=== PATIENT | female | born 1935 | race Caucasian/White ===

== ENCOUNTER → 2017-06-08 | Outpatient (CLI) | payer OTHER ==
[~2017-06-08] VITALS: Ht 162.6 cm; Wt 58.5 kg
[~2017-06-08] MED LIST: ASPIR 8181 M1 PO; CALCIUM 500 MG1 EACH PO; CENTRUM MULTIG80 MCG PO; CRESTOR10 MG PO; LASIX20 MG PO; LUTEIN6 M1 PO; MIRALAX17 GM PO; VITAMIN D-32000 UNI2 PO
[2017-06-08 10:33] LABS: INTER. NORMALIZED RATIO 1.2; PROTHROMBIN TIME 12.9 SEC (10.2-12.9)
[2017-06-08 10:36] LABS: PTT 29.1 SEC (25-37)
== END | disposition home or self-care (01) ==
LOC: OPR 09:31 → EDSTATUS 10:00
PROVIDERS: Family Medicine
PROC: 0BBG3ZX Excision of Left Upper Lung Lobe, Percutaneous Approach, Diagnostic (ICD-10-PCS; principal; 2017-06-08)
DX: C34.12 Malignant neoplasm of upper lobe, left bronchus or lung (principal); J60 Coalworker's pneumoconiosis
CPT/HCPCS: 71010; 77012; 85610; 85730; 88305; 88341 TC; 88342 TC; J3010

== ENCOUNTER 2017-08-21 22:19 | Observation (INO) | payer OTHER ==
[~2017-08-21] VITALS: Ht 165.1 cm; Wt 49.5 kg
[2017-08-21 23:54] LABS: HEMATOCRIT 28.1 % (36.0-46.0); HEMOGLOBIN 9.6 G/DL (11.9-15.5); MCH 28.6 PG (29.0-34.0); MCHC 34.2 G/DL (30.0-36.0); MCV 83.6 FL (83-99); PLATELET COUNT 202 K/uL (156-360); RBC DIS.WIDTH-CV 13.9 % (11.8-14.6); RBC DIS.WIDTH-SD 40.1 % (39-53); RED BLOOD COUNT 3.36 M/uL (3.80-5.20); WHITE BLOOD COUNT 5.6 K/uL (4.1-10.2)
[2017-08-22 00:05] LABS: CHLORIDE 100 mEq/L (99-109); POTASSIUM 4.1 mEq/L (3.7-5.4); SODIUM 135 mEq/L (136-147)
[2017-08-22 00:07] LABS: GLUCOSE 120 mg/dL (70-99)
[2017-08-22 00:08] LABS: TOTAL PROTEIN 5.9 g/dL (6.4-8.3)
[2017-08-22 00:09] LABS: TOTAL BILIRUBIN 0.7 mg/dL (0.0-1.0)
[2017-08-22 00:11] LABS: ALKALINE PHOSPHATASE 74 IU/L (3-129); CREATININE 0.6 mg/dL (0.6-1.3); GFR ESTIMATE (CALCULATED) > 59 mL/min/
[2017-08-22 00:12] LABS: UREA NITROGEN (BUN) 10 mg/dL (9-23)
[2017-08-22 00:13] LABS: AST (GOT) 14 IU/L (2-34)
[2017-08-22 00:14] LABS: ALT (GPT) 18 IU/L (3-49)
[2017-08-22 00:15] LABS: LIPASE 97 U/L (1.0-51.0)
[2017-08-22 00:17] LABS: TROP-I INTERPRETATION NEGATIVE; TROPONIN-I < 0.01 ng/mL (0.0-0.30)
[2017-08-22 02:12] LABS: MAGNESIUM 1.4 mg/dL (1.3-2.7)
[2017-08-22 02:17] LABS: PHOSPHORUS 3.7 mg/dL (2.5-4.9)
[2017-08-22 06:35] LABS: TROP-I INTERPRETATION NEGATIVE; TROPONIN-I < 0.01 ng/mL (0.0-0.30)
[2017-08-22 07:29] VITALS: BP 144/73
[2017-08-22 09:47] LABS: THYROTROPIN (TSH) 0.79 MIU/L (0.4-5.5)
[2017-08-22] MEDS ORDERED: TIMOPTIC-0100 DROP/1 LEFT EYE (11:44)
[2017-08-22] MEDS ORDERED: ISTALOL5 ML LEFT EYE (11:45)
[2017-08-22] MEDS ORDERED: PRILOSEC20 MG PO (11:46)
[2017-08-22] MEDS ORDERED: XYLOCAINE VISC100 ML PO (11:46)
[2017-08-22] MEDS ORDERED: ZOFRAN8 MG PO (11:47)
[2017-08-22] MEDS ORDERED: COMPAZINE10 MG PO (11:47)
[2017-08-22 12:09] VITALS: BP 118/56
[2017-08-22 16:12] VITALS: BP 142/64
[2017-08-22 20:00] VITALS: BP 171/76
[2017-08-22 23:32] VITALS: BP 164/74
[2017-08-23 05:10] VITALS: BP 134/63
[2017-08-23 05:54] LABS: HEMATOCRIT 24.8 % (36.0-46.0); HEMOGLOBIN 8.4 G/DL (11.9-15.5); MCH 28.5 PG (29.0-34.0); MCHC 33.9 G/DL (30.0-36.0); MCV 84.1 FL (83-99); PLATELET COUNT 205 K/uL (156-360); RBC DIS.WIDTH-SD 40.5 % (39-53); RED BLOOD COUNT 2.95 M/uL (3.80-5.20); WHITE BLOOD COUNT 4.5 K/uL (4.1-10.2)
[2017-08-23 06:16] LABS: CHLORIDE 103 MEQ/L (99-109); CREATININE 0.4 MG/DL (0.6-1.3); GFR ESTIMATE (CALCULATED) > 59 mL/min/; GLUCOSE 90 mg/dL (70-99); POTASSIUM 3.8 MEQ/L (3.7-5.4); SODIUM 135 MEQ/L (136-147); UREA NITROGEN (BUN) 6 mg/dL (9-23)
[2017-08-23 08:57] VITALS: BP 170/88
== END 2017-08-23 11:10 | disposition home or self-care (01) ==
LOC: EME 22:19 → EDOF 08-22 06:08 → ENRESERV 08-22 06:10 → 5WEST 08-22 07:19
PROVIDERS: Emergency Medicine; Hospitalist
DX: E86.1 Hypovolemia (principal); D64.9 Anemia, unspecified; C34.32 Malignant neoplasm of lower lobe, left bronchus or lung; E78.5 Hyperlipidemia, unspecified; Z92.21 Personal history of antineoplastic chemotherapy; Z92.3 Personal history of irradiation; Z79.82 Long term (current) use of aspirin; Z79.52 Long term (current) use of systemic steroids; R00.2 Palpitations; I47.1 Supraventricular tachycardia; I48.91 Unspecified atrial fibrillation; J90 Pleural effusion, not elsewhere classified; Z90.49 Acquired absence of other specified parts of digestive tract; Z66 Do not resuscitate; Z80.0 Family history of malignant neoplasm of digestive organs; Z80.3 Family history of malignant neoplasm of breast
CPT/HCPCS: 71020; 71275; 80048; 80053; 83690; 83735; 84100; 84443; 84484; 85027; 93005; 99281; 99285; G0378; J1644; J2405; J7030; J7512; S0028

== ENCOUNTER 2017-11-06 10:54 | Inpatient (IN) | payer OTHER ==
[~2017-11-06] VITALS: Ht 165.1 cm; Wt 50.4 kg
[~2017-11-06 10:54] MED LIST changes: +COMPAZINE10 MG PO; +ISTALOL5 ML LEFT EYE; +PRILOSEC20 MG PO; +TIMOPTIC-0100 DROP/1 LEFT EYE; +XYLOCAINE VISC100 ML PO; +ZOFRAN8 MG PO
[2017-11-06 13:29] LABS: BASOPHIL (%) 0.2 % (0-1); EOSINOPHIL (%) 0.2 % (0-5); HEMATOCRIT 26.4 % (36.0-46.0); HEMOGLOBIN 8.4 G/DL (11.9-15.5); IMMATURE GRANULOCYTE (%) 0.8 % (0.0-0.7); LYMPHOCYTE (%) 3.7 % (15-42); LYMPHOCYTE COUNT 0.4 K/uL (1.0-2.8); MCH 27.7 PG (29.0-34.0); MCHC 31.8 G/DL (30.0-36.0); MCV 87.1 FL (83-99); MONOCYTE (%) 5.6 % (3-12); MONOCYTE COUNT 0.7 K/uL (0-0.8); NEUTROPHIL (%) 89.5 % (45-76); NEUTROPHIL COUNT 10.8 K/uL (1.8-6.4); PLATELET COUNT 468 K/uL (156-360); RBC DIS.WIDTH-CV 16.8 % (11.8-14.6); RBC DIS.WIDTH-SD 53.1 % (39-53); RED BLOOD COUNT 3.03 M/uL (3.80-5.20)
[2017-11-06 13:34] LABS: INTER. NORMALIZED RATIO 1.3
[2017-11-06 13:37] LABS: PTT 25.8 SEC (25-37)
[2017-11-06 13:38] LABS: ALBUMIN 2.7 g/dL (3.2-4.8); CHLORIDE 100 mEq/L (99-109); MAGNESIUM 1.6 mg/dL (1.3-2.7); POTASSIUM 4.1 mEq/L (3.7-5.4); SODIUM 136 mEq/L (136-147)
[2017-11-06 13:40] LABS: GLUCOSE 103 mg/dL (70-99); TOTAL PROTEIN 6.7 g/dL (6.4-8.3)
[2017-11-06 13:42] LABS: TOTAL BILIRUBIN 0.3 mg/dL (0.0-1.0)
[2017-11-06 13:44] LABS: ALKALINE PHOSPHATASE 289 IU/L (3-129); CREATININE 0.6 mg/dL (0.6-1.3); GFR ESTIMATE (CALCULATED) > 59 mL/min/
[2017-11-06 13:45] LABS: AST (GOT) 32 IU/L (2-34); UREA NITROGEN (BUN) 17 mg/dL (9-23)
[2017-11-06 13:47] LABS: ALT (GPT) 37 IU/L (3-49)
[2017-11-06] MEDS ORDERED: COLACE100 MG PO (13:47)
[2017-11-06 13:49] LABS: TROP-I INTERPRETATION NEGATIVE; TROPONIN-I < 0.01 ng/mL (0.0-0.30)
[2017-11-06 17:51] VITALS: BP 126/60
[2017-11-06 19:55] VITALS: BP 132/59
[2017-11-06 23:42] VITALS: BP 128/60
[2017-11-07 03:58] VITALS: BP 133/61
[2017-11-07 06:33] LABS: HEMATOCRIT 24.3 % (36.0-46.0); HEMOGLOBIN 7.5 G/DL (11.9-15.5); MCH 26.8 PG (29.0-34.0); MCHC 30.9 G/DL (30.0-36.0); MCV 86.8 FL (83-99); PLATELET COUNT 464 K/uL (156-360); RBC DIS.WIDTH-CV 16.7 % (11.8-14.6); RBC DIS.WIDTH-SD 53.5 % (39-53); WHITE BLOOD COUNT 10.4 K/uL (4.1-10.2)
[2017-11-07 06:58] LABS: CHLORIDE 99 MEQ/L (99-109); CREATININE 0.4 MG/DL (0.6-1.3); GFR ESTIMATE (CALCULATED) > 59 mL/min/; GLUCOSE 94 mg/dL (70-99); SODIUM 133 MEQ/L (136-147); UREA NITROGEN (BUN) 13 mg/dL (9-23)
[2017-11-07 07:26] LABS: VANCOMYCIN, TROUGH 7.8 MCG/ML (10-20)
[2017-11-07 07:30] VITALS: BP 123/58
[2017-11-07 11:00] VITALS: BP 122/61
[2017-11-07 16:46] VITALS: BP 131/63
[2017-11-07 20:00] VITALS: BP 124/58
[2017-11-07 23:35] VITALS: BP 117/56
[2017-11-08 04:00] VITALS: BP 117/55
[2017-11-08 06:22] LABS: BASOPHIL (%) 0.4 % (0-1); EOSINOPHIL (%) 0.9 % (0-5); EOSINOPHIL COUNT 0.1 K/uL (0-0.3); HEMATOCRIT 23.3 % (36.0-46.0); HEMOGLOBIN 7.3 G/DL (11.9-15.5); IMMATURE GRANULOCYTE (%) 0.8 % (0.0-0.7); LYMPHOCYTE (%) 3.9 % (15-42); LYMPHOCYTE COUNT 0.4 K/uL (1.0-2.8); MCH 26.8 PG (29.0-34.0); MCHC 31.3 G/DL (30.0-36.0); MCV 85.7 FL (83-99); MONOCYTE (%) 7.9 % (3-12); MONOCYTE COUNT 0.8 K/uL (0-0.8); NEUTROPHIL (%) 86.1 % (45-76); NEUTROPHIL COUNT 8.8 K/uL (1.8-6.4); PLATELET COUNT 437 K/uL (156-360); RBC DIS.WIDTH-CV 16.7 % (11.8-14.6); RBC DIS.WIDTH-SD 51.8 % (39-53); RED BLOOD COUNT 2.72 M/uL (3.80-5.20); WHITE BLOOD COUNT 10.2 K/uL (4.1-10.2)
[2017-11-08 06:56] LABS: CHLORIDE 98 MEQ/L (99-109); CREATININE 0.5 MG/DL (0.6-1.3); GFR ESTIMATE (CALCULATED) > 59 mL/min/; GLUCOSE 107 mg/dL (70-99); MAGNESIUM 1.6 mg/dl (1.3-2.7); SODIUM 133 MEQ/L (136-147); UREA NITROGEN (BUN) 11 mg/dL (9-23)
[2017-11-08 07:56] VITALS: BP 135/63
[2017-11-08 10:53] LABS: TYPE OF FLUID PLEURAL
[2017-11-08 10:54] LABS: APPEARANCE SL.HAZY/YELLOW; BODY FLUID RBC'S < 1000 /MM^3 (0-100); BODY FLUID WBC'S 651 /MM^3 (0-500)
[2017-11-08 10:55] LABS: BODY FLUID EOSINOPHILS 0 % (0-25); MONONUCLEAR WBC'S 9 %; POLYNUCLEAR WBC'S 91 % (0-25)
[2017-11-08 10:56] LABS: BODY FLUID LDH 97 IU/L
[2017-11-08 10:57] LABS: APPEARANCE ND; TYPE OF FLUID ND
[2017-11-08 10:58] LABS: BODY FLUID EOSINOPHILS ND % (0-25); BODY FLUID PROTEIN ND G/DL; BODY FLUID RBC'S ND /MM^3 (0-100); BODY FLUID WBC'S ND /MM^3 (0-500); MONONUCLEAR WBC'S ND %; POLYNUCLEAR WBC'S ND % (0-25)
[2017-11-08 10:59] LABS: BODY FLUID LDH ND IU/L; COMMENT ND
[2017-11-08 11:55] VITALS: BP 109/53
[2017-11-08 16:00] VITALS: BP 116/58
[2017-11-08 23:47] VITALS: BP 125/60
[2017-11-09] VITALS (7 sets, daily range): BP systolic 92–123; BP diastolic 54–64
[2017-11-10 04:09] VITALS: BP 118/58
[2017-11-10 06:12] LABS: HEMATOCRIT 25.4 % (36.0-46.0); MCH 27.3 PG (29.0-34.0); MCHC 31.5 G/DL (30.0-36.0); MCV 86.7 FL (83-99); PLATELET COUNT 509 K/uL (156-360); RBC DIS.WIDTH-CV 16.4 % (11.8-14.6); RBC DIS.WIDTH-SD 51.9 % (39-53); RED BLOOD COUNT 2.93 M/uL (3.80-5.20); WHITE BLOOD COUNT 12.8 K/uL (4.1-10.2)
[2017-11-10 06:38] LABS: CHLORIDE 101 MEQ/L (99-109); CREATININE 0.4 MG/DL (0.6-1.3); GFR ESTIMATE (CALCULATED) > 59 mL/min/; GLUCOSE 89 mg/dL (70-99); POTASSIUM 4.4 MEQ/L (3.7-5.4); SODIUM 137 MEQ/L (136-147)
[2017-11-10 06:42] LABS: UREA NITROGEN (BUN) 21 mg/dL (9-23)
[2017-11-10 07:48] VITALS: BP 128/58
[2017-11-10 10:55] VITALS: BP 126/59
[2017-11-10] MEDS ORDERED: AMOX TR-K600 MG/5 M PO ×2 (13:36→14:48)
[2017-11-10] MEDS ORDERED: PREDNISONE20 MG PO ×2 (13:36→14:48)
[2017-11-10 14:50] VITALS: BP 118/64
== END 2017-11-10 17:28 | disposition home health service (06) | DRG 194 ==
LOC: EME 10:54 → 5EAST 16:44 → EDOF 16:44 → ENRESERV 16:46 → 5EAST 17:33
PROVIDERS: Emergency Medicine; Internal Medicine
PROC: 0W9B3ZZ Drainage of Left Pleural Cavity, Percutaneous Approach (ICD-10-PCS; principal; 2017-11-08)
DX: J18.9 Pneumonia, unspecified organism (principal); J90 Pleural effusion, not elsewhere classified; C34.12 Malignant neoplasm of upper lobe, left bronchus or lung; D64.9 Anemia, unspecified; J98.11 Atelectasis; F41.9 Anxiety disorder, unspecified; F32.9 Major depressive disorder, single episode, unspecified; Z68.1 Body mass index [BMI] 19.9 or less, adult; Z90.49 Acquired absence of other specified parts of digestive tract; Z79.82 Long term (current) use of aspirin; Z79.899 Other long term (current) drug therapy; Z85.118 Personal history of other malignant neoplasm of bronchus and lung; Z92.21 Personal history of antineoplastic chemotherapy; Z92.3 Personal history of irradiation; Z80.0 Family history of malignant neoplasm of digestive organs
CPT/HCPCS: 71046; 71250; 76942; 80048; 80053; 80202; 81003; 83605; 83615 91; 83735; 84157; 84484; 85025; 85027; 85610; 85730; 87040; 87070; 87075; 87205; 87449; 88108; 88305; 89051; 93005; 99202; 99281; 99285; J0456; J0692; J1644; J2543; J3370; J7050; J7512

== ENCOUNTER 2017-11-30 09:59 | Inpatient (IN) | payer OTHER ==
[~2017-11-30] VITALS: Ht 165.1 cm; Wt 48.3 kg
[~2017-11-30 09:59] MED LIST changes: +AMOX TR-K600 MG/5 M PO; +COLACE100 MG PO; +PREDNISONE20 MG PO
[2017-11-30 11:02] LABS: CHLORIDE 102 mEq/L (99-109); POTASSIUM 4.2 mEq/L (3.7-5.4); SODIUM 137 mEq/L (136-147)
[2017-11-30 11:04] LABS: GLUCOSE 114 mg/dL (70-99)
[2017-11-30 11:06] LABS: BASOPHIL (%) 0.2 % (0-1); EOSINOPHIL COUNT 0.1 K/uL (0-0.3); HEMATOCRIT 25.4 % (36.0-46.0); HEMOGLOBIN 8.1 G/DL (11.9-15.5); IMMATURE GRANULOCYTE (%) 0.6 % (0.0-0.7); LYMPHOCYTE (%) 3.4 % (15-42); LYMPHOCYTE COUNT 0.3 K/uL (1.0-2.8); MCH 26.5 PG (29.0-34.0); MCHC 31.9 G/DL (30.0-36.0); MONOCYTE (%) 5.6 % (3-12); MONOCYTE COUNT 0.5 K/uL (0-0.8); NEUTROPHIL (%) 89.2 % (45-76); NEUTROPHIL COUNT 7.2 K/uL (1.8-6.4); RBC DIS.WIDTH-CV 16.7 % (11.8-14.6); RBC DIS.WIDTH-SD 50.7 % (39-53); RED BLOOD COUNT 3.06 M/uL (3.80-5.20)
[2017-11-30 11:08] LABS: CREATININE 0.6 mg/dL (0.6-1.3); GFR ESTIMATE (CALCULATED) > 59 mL/min/
[2017-11-30 11:09] LABS: UREA NITROGEN (BUN) 15 mg/dL (9-23)
[2017-11-30 11:11] LABS: TROP-I INTERPRETATION NEGATIVE; TROPONIN-I < 0.01 ng/mL (0.0-0.30)
[2017-11-30 11:50] LABS: PLAT.SUFFICIENCY ADEQUATE
[2017-11-30 11:53] LABS: PLATELET COUNT 325 K/uL (156-360)
[2017-11-30] MEDS ORDERED: LEXAPRO10 MG PO (17:29)
[2017-11-30 19:13] LABS: HEMATOCRIT 27.3 % (36.0-46.0); HEMOGLOBIN 8.6 G/DL (11.9-15.5); MCH 26.4 PG (29.0-34.0); MCHC 31.5 G/DL (30.0-36.0); MCV 83.7 FL (83-99); PLATELET COUNT 389 K/uL (156-360); RBC DIS.WIDTH-CV 16.6 % (11.8-14.6); RED BLOOD COUNT 3.26 M/uL (3.80-5.20)
[2017-11-30 19:48] LABS: HDL CHOLESTEROL 35 MG/DL (Desirable>=50); LDL CHOLESTEROL 82 mg/dL (Desirable<100); NON-HDL CHOLESTEROL 93 mg/dL (Desirable<160); TOTAL CHOLESTEROL 128 mg/dL (Desirable<200); TRIGLYCERIDES 55 MG/DL (Normal: <150)
[2017-11-30 20:04] VITALS: BP 152/61
[2017-11-30 23:50] VITALS: BP 140/93
[2017-12-01] VITALS (7 sets, daily range): BP systolic 111–139; BP diastolic 55–65
[2017-12-01 07:12] LABS: CHLORIDE 102 MEQ/L (99-109); CREATININE 0.5 MG/DL (0.6-1.3); GFR ESTIMATE (CALCULATED) > 59 mL/min/; GLUCOSE 97 mg/dL (70-99); SODIUM 136 MEQ/L (136-147); UREA NITROGEN (BUN) 13 mg/dL (9-23)
[2017-12-01 09:12] LABS: HEMOGLOBIN A1c (GLYCOHEMOGLOB) 5.2 % (Below 5.7)
[2017-12-02 04:02] VITALS: BP 141/65
[2017-12-02 06:08] LABS: BASOPHIL (%) 0.3 % (0-1); EOSINOPHIL (%) 1.2 % (0-5); EOSINOPHIL COUNT 0.1 K/uL (0-0.3); HEMATOCRIT 24.3 % (36.0-46.0); HEMOGLOBIN 7.6 G/DL (11.9-15.5); IMMATURE GRANULOCYTE (%) 0.3 % (0.0-0.7); LYMPHOCYTE (%) 7.4 % (15-42); LYMPHOCYTE COUNT 0.5 K/uL (1.0-2.8); MCH 25.7 PG (29.0-34.0); MCHC 31.3 G/DL (30.0-36.0); MCV 82.1 FL (83-99); MONOCYTE (%) 8.9 % (3-12); MONOCYTE COUNT 0.6 K/uL (0-0.8); NEUTROPHIL (%) 81.9 % (45-76); NEUTROPHIL COUNT 5.4 K/uL (1.8-6.4); PLATELET COUNT 350 K/uL (156-360); RBC DIS.WIDTH-CV 16.4 % (11.8-14.6); RBC DIS.WIDTH-SD 49.5 % (39-53); RED BLOOD COUNT 2.96 M/uL (3.80-5.20); WHITE BLOOD COUNT 6.6 K/uL (4.1-10.2)
[2017-12-02 06:30] LABS: CHLORIDE 98 MEQ/L (99-109); CREATININE 0.4 MG/DL (0.6-1.3); GFR ESTIMATE (CALCULATED) > 59 mL/min/; GLUCOSE 111 mg/dL (70-99); MAGNESIUM 1.6 mg/dl (1.3-2.7); POTASSIUM 3.9 MEQ/L (3.7-5.4); SODIUM 131 MEQ/L (136-147); UREA NITROGEN (BUN) 13 mg/dL (9-23)
[2017-12-02 07:57] VITALS: BP 130/70
[2017-12-02 09:24] LABS: IRON 17 MCG/DL (35-150); TRANSFERRIN (TIBC) 151.2 mg/dL (215-380); TRANSFERRIN SATUR. 11 % (20-55)
[2017-12-02 10:11] LABS: FOLIC ACID (FOLATE) 21.5 NG/ML (5.0-22.0)
[2017-12-02 11:18] VITALS: BP 98/60
[2017-12-02 16:09] VITALS: BP 113/58
[2017-12-02 20:09] VITALS: BP 120/65
[2017-12-03] VITALS (11 sets, daily range): BP systolic 116–135; BP diastolic 59–74
[2017-12-03 07:01] LABS: BASOPHIL (%) 0 % (0-1); EOSINOPHIL (%) 0 % (0-5); HEMATOCRIT 32.1 % (36.0-46.0); IMMATURE GRANULOCYTE (%) 0.7 % (0.0-0.7); LYMPHOCYTE (%) 4.1 % (15-42); LYMPHOCYTE COUNT 0.2 K/uL (1.0-2.8); MCH 26.5 PG (29.0-34.0); MCHC 32.1 G/DL (30.0-36.0); MCV 82.7 FL (83-99); MONOCYTE (%) 1.3 % (3-12); MONOCYTE COUNT 0.1 K/uL (0-0.8); NEUTROPHIL (%) 93.9 % (45-76); NEUTROPHIL COUNT 4.3 K/uL (1.8-6.4); PLATELET COUNT 396 K/uL (156-360); RBC DIS.WIDTH-CV 15.8 % (11.8-14.6); RBC DIS.WIDTH-SD 48.1 % (39-53); WHITE BLOOD COUNT 4.6 K/uL (4.1-10.2)
[2017-12-03 07:03] LABS: HEMOGLOBIN 10.3 G/DL (11.9-15.5); RED BLOOD COUNT 3.88 M/uL (3.80-5.20)
[2017-12-03 07:28] LABS: CHLORIDE 100 MEQ/L (99-109); CREATININE 0.5 MG/DL (0.6-1.3); GFR ESTIMATE (CALCULATED) > 59 mL/min/; GLUCOSE 149 mg/dL (70-99); SODIUM 133 MEQ/L (136-147); UREA NITROGEN (BUN) 12 mg/dL (9-23)
[2017-12-03 07:39] LABS: POTASSIUM 4.8 MEQ/L (3.7-5.4)
[2017-12-04] VITALS (7 sets, daily range): BP systolic 127–164; BP diastolic 64–81
[2017-12-04 08:48] LABS: HEMATOCRIT 31.3 % (36.0-46.0); HEMOGLOBIN 10.1 G/DL (11.9-15.5); MCH 26.9 PG (29.0-34.0); MCHC 32.3 G/DL (30.0-36.0); MCV 83.2 FL (83-99); PLATELET COUNT 428 K/uL (156-360); RBC DIS.WIDTH-CV 16.2 % (11.8-14.6); RBC DIS.WIDTH-SD 49.3 % (39-53); RED BLOOD COUNT 3.76 M/uL (3.80-5.20)
[2017-12-04 09:13] LABS: CHLORIDE 102 MEQ/L (99-109); CREATININE 0.5 MG/DL (0.6-1.3); GFR ESTIMATE (CALCULATED) > 59 mL/min/; GLUCOSE 133 mg/dL (70-99); POTASSIUM 4.6 MEQ/L (3.7-5.4); SODIUM 137 MEQ/L (136-147); UREA NITROGEN (BUN) 19 mg/dL (9-23)
[2017-12-05 03:34] VITALS: BP 136/75
[2017-12-05 06:34] LABS: RED BLOOD COUNT 3.91 M/uL (3.80-5.20); WHITE BLOOD COUNT 12.8 K/uL (4.1-10.2)
[2017-12-05 06:35] LABS: HEMATOCRIT 32.8 % (36.0-46.0); HEMOGLOBIN 10.7 G/DL (11.9-15.5); MCH 27.4 PG (29.0-34.0); MCHC 32.6 G/DL (30.0-36.0); MCV 83.9 FL (83-99); PLATELET COUNT 437 K/uL (156-360); RBC DIS.WIDTH-CV 16.6 % (11.8-14.6); RBC DIS.WIDTH-SD 50.8 % (39-53)
[2017-12-05 06:47] LABS: CHLORIDE 102 MEQ/L (99-109); CREATININE 0.5 MG/DL (0.6-1.3); GFR ESTIMATE (CALCULATED) > 59 mL/min/; GLUCOSE 128 mg/dL (70-99); POTASSIUM 4.5 MEQ/L (3.7-5.4); SODIUM 136 MEQ/L (136-147); UREA NITROGEN (BUN) 21 mg/dL (9-23)
[2017-12-05 07:47] VITALS: BP 144/80
[2017-12-05 11:31] VITALS: BP 135/63
[2017-12-05 15:22] VITALS: BP 158/67
[2017-12-05 19:29] VITALS: BP 157/73
[2017-12-05 23:35] VITALS: BP 158/77
[2017-12-06 04:21] VITALS: BP 160/84
[2017-12-06 06:06] LABS: HEMATOCRIT 33.4 % (36.0-46.0); HEMOGLOBIN 10.9 G/DL (11.9-15.5); MCH 26.8 PG (29.0-34.0); MCHC 32.6 G/DL (30.0-36.0); MCV 82.3 FL (83-99); PLATELET COUNT 455 K/uL (156-360); RBC DIS.WIDTH-CV 16.6 % (11.8-14.6); RBC DIS.WIDTH-SD 50.1 % (39-53); RED BLOOD COUNT 4.06 M/uL (3.80-5.20); WHITE BLOOD COUNT 10.5 K/uL (4.1-10.2)
[2017-12-06 06:35] LABS: CHLORIDE 101 MEQ/L (99-109); CREATININE 0.5 MG/DL (0.6-1.3); GFR ESTIMATE (CALCULATED) > 59 mL/min/; GLUCOSE 116 mg/dL (70-99); POTASSIUM 4.5 MEQ/L (3.7-5.4); SODIUM 135 MEQ/L (136-147); UREA NITROGEN (BUN) 24 mg/dL (9-23)
[2017-12-06 08:00] VITALS: BP 155/94
[2017-12-06 11:32] VITALS: BP 134/68
[2017-12-06] MEDS ORDERED: DILTIAZEM 24HR120 MG PO (13:10)
[2017-12-06] MEDS ORDERED: ELIQUIS2.5 MG PO (13:10)
[2017-12-06] MEDS ORDERED: ATORVASTATIN CA40 MG PO (13:10)
[2017-12-06] MEDS ORDERED: FERROUS SULFAT325 MG PO (13:11)
[2017-12-06] MEDS ORDERED: MEDROL DOSEPAK4 MG PO (13:11)
[2017-12-06 15:48] VITALS: BP 141/63
== END 2017-12-06 17:35 | DRG 64 ==
LOC: EME 09:59 → 5SOUTH 18:13 → EDOF 18:13 → ENRESERV 18:14 → 5SOUTH 19:43
PROVIDERS: Emergency Medicine; Hospitalist; Physician Assistant; Physician Assistant Medical
PROC: 30233N1 Transfusion of Nonautologous Red Blood Cells into Peripheral Vein, Percutaneous Approach (ICD-10-PCS; principal; 2017-12-03)
DX: I63.9 Cerebral infarction, unspecified (principal); C34.90 Malignant neoplasm of unspecified part of unspecified bronchus or lung; C79.31 Secondary malignant neoplasm of brain; G93.6 Cerebral edema; I48.0 Paroxysmal atrial fibrillation; I48.92 Unspecified atrial flutter; D63.8 Anemia in other chronic diseases classified elsewhere; D72.829 Elevated white blood cell count, unspecified; E78.5 Hyperlipidemia, unspecified; R06.02 Shortness of breath; R27.0 Ataxia, unspecified; R63.4 Abnormal weight loss; Z68.1 Body mass index [BMI] 19.9 or less, adult; Z80.0 Family history of malignant neoplasm of digestive organs; Z80.1 Family history of malignant neoplasm of trachea, bronchus and lung; Z80.3 Family history of malignant neoplasm of breast; Z81.1 Family history of alcohol abuse and dependence; Z92.21 Personal history of antineoplastic chemotherapy; Z92.3 Personal history of irradiation
CPT/HCPCS: 70450; 70553; 71045; 71046; 80048; 80061; 81003; 82272; 82607; 82746; 83036; 83540; 83735; 84466; 84484; 85025; 85027; 86850; 86900; 86901; 86920; 93005; 93306; 93880; 97530 GO; 99281; 99285; J1100; J1644; J2405; J3475; J7030; P9016